=== PATIENT | male | born 1990 | race Caucasian/White ===

== ENCOUNTER 2020-06-04 11:57 | Emergency (ER) | payer OTHER ==
[~2020-06-04 11:57] MED LIST: NAPROSYN500 MG PO
[2020-06-04 13:09] LABS: HEMOGLOBIN 14.1 gm/dl (14.0-17.5); RED BLOOD COUNT 4.74 M/UL (4.20-5.50); WHITE BLOOD COUNT 13.4 K/UL (4.5-11.0)
[2020-06-04 13:33] LABS: BUN/CREATININE RATIO 16 (0-10)
== END 2020-06-04 15:04 | disposition home or self-care (01) ==
LOC: ER1 11:57
PROVIDERS: Family Medicine
DX: R51.9 Headache, unspecified (principal); F17.210 Nicotine dependence, cigarettes, uncomplicated; Z86.19 Personal history of other infectious and parasitic diseases
CPT/HCPCS: 70450; 72125; 80053; 80307; 81001; 85025; 96374; 96375; 99284; J1885; J2405

== ENCOUNTER 2020-06-05 10:18 | Emergency (ER) | payer OTHER ==
[2020-06-05 11:36] LABS: HEMOGLOBIN 13.9 gm/dl (14.0-17.5); RED BLOOD COUNT 4.66 M/UL (4.20-5.50); WHITE BLOOD COUNT 12.2 K/UL (4.5-11.0)
[2020-06-05 13:07] LABS: BUN/CREATININE RATIO 17 (0-10)
== END 2020-06-05 12:33 | disposition left against medical advice (07) ==
LOC: ER1 10:18
PROVIDERS: Family Medicine
DX: S06.5X0A Traumatic subdural hemorrhage without loss of consciousness, initial encounter (principal); S50.312A Abrasion of left elbow, initial encounter; Z20.822 Contact with and (suspected) exposure to COVID-19; Z88.8 Allergy status to other drugs, medicaments and biological substances; Z88.5 Allergy status to narcotic agent; W17.89XA Other fall from one level to another, initial encounter; Y92.830 Public park as the place of occurrence of the external cause
CPT/HCPCS: 70450; 80053; 80307; 81001; 82550; 82553; 83874; 84484; 85025; 99284; J2060; U0002

== ENCOUNTER 2020-06-05 20:09 | Emergency (ER) | payer OTHER | END 2020-06-05 23:20 | disposition short-term general hospital (02) | LOC: ER1 20:09 | DX: S06.5X0A Traumatic subdural hemorrhage without loss of consciousness, initial encounter (principal); I10 Essential (primary) hypertension; F17.200 Nicotine dependence, unspecified, uncomplicated; V09.9XXA Pedestrian injured in unspecified transport accident, initial encounter; Y92.149 Unspecified place in prison as the place of occurrence of the external cause | CPT/HCPCS: 70450; 96374; 99285 ==

== ENCOUNTER 2020-08-06 05:50 | Emergency (ER) | payer OTHER | END 2020-08-06 09:11 | disposition home or self-care (01) | LOC: ER1 05:50 | DX: F19.10 Other psychoactive substance abuse, uncomplicated (principal) | CPT/HCPCS: 99283; J7030 ==

== ENCOUNTER 2021-01-14 20:09 | Emergency (ER) | payer OTHER | END 2021-01-14 21:30 | disposition home or self-care (01) | LOC: ER1 20:09 | DX: Z53.21 Procedure and treatment not carried out due to patient leaving prior to being seen by health care provider (principal) ==

== ENCOUNTER 2021-06-20 22:19 | Emergency (ER) | payer OTHER ==
[2021-06-22 23:08] LABS: CHLAMYDIA TRACHOMATIS, NAA Negative (Negative); NEISSERIA GONORRHOEAE, NAA Negative (Negative)
== END 2021-06-21 01:05 | disposition home or self-care (01) ==
LOC: ER1 22:19
PROVIDERS: Family Medicine
DX: Z20.2 Contact with and (suspected) exposure to infections with a predominantly sexual mode of transmission (principal); R30.0 Dysuria; F17.200 Nicotine dependence, unspecified, uncomplicated
CPT/HCPCS: 81001; 96372; 99283; J0696